=== PATIENT | female | born 1965 | race Two or more races ===

== ENCOUNTER 2024-03-30 13:26 | Emergency (ER) | payer OTHER ==
[~2024-03-30] VITALS: Ht 157.5 cm; Wt 63.0 kg
[2024-03-30 14:46] VITALS: BP 128/76; O2SAT 99
[2024-03-30] MEDS ORDERED: ARMOUR THYROID30 M1 PO (14:46)
[2024-03-30] MEDS ORDERED: PROGESTERONE200 MG PO (14:46)
== END 2024-03-30 18:15 | disposition home or self-care (01) ==
LOC: ER 13:28
DX: S90.02XA Contusion of left ankle, initial encounter (principal); W18.39XA Other fall on same level, initial encounter; Y93.89 Activity, other specified; Y92.89 Other specified places as the place of occurrence of the external cause; Y99.9 Unspecified external cause status